=== PATIENT | female | born 1985 | race Caucasian/White ===

== ENCOUNTER 2018-10-17 11:49 | Emergency (ER) | payer OTHER ==
[2018-10-17 11:59] VITALS: BP 124/72; PULSE 68; TEMP 98.2; BMI 21.0
--- NOTE | 2018-10-17 12:47 | PDOC ---
History of Present Illness - General Chief Complaint: Puncture Wound Stated Complaint: RIGHT MID FINGER POKED WITH INTRUMENT AT WORK Time Seen by Provider: 10/17/18 11:52 History Source: Patient Exam Limitations: No Limitations - History of Present Illness Initial Comments: 10/17/18 11:52 33 yo F presenting to the ER for assessment s/p needle stick injury The patient works as a dental hygenist She was assisting with the removal of a crown. The crown was placed on the tray and she turned to pick it up She was stuck by the metal portion of the crown on her middle finger She bled and milked the finger She washed the finger with copious water the HIV status of the source patient in unknown, at this time she is deciding on whether to give a blood sample (source patient is a low risk population) PMH: denies PSH: denies Meds: denies ALL: Sulfa --> flushed feel Social: denies drug or cigarette use FH: non contributory ROS GENERAL/CONSTITUTIONAL: No: fever, chills CARDIOVASCULAR: No: chest pain, lightheadedness RESPIRATORY: No: cough, shortness of breath GASTROINTESTINAL: No: nausea, vomiting, diarrhea, abdominal pain GENITOURINARY: No: dysuria, hematuria, frequency, urgency, flank pain. MUSCULOSKELETAL: No: back pain, neck pain, joint pain, muscle swelling or pain SKIN: Yes: small puncture wound No: lesions, pallor, rash or easy bruising. NEUROLOGIC: No: headache, vertigo, paresthesias, weakness PE: GENERAL: The patient is in no acute distress. HEAD: Normal EYES: PERRLA, EOMI, sclera anicteric, conjunctiva clear. ENT: Ears normal, nares patent, oropharynx clear without exudates. Moist mucous membranes. NECK: Normal range of motion, supple LUNGS: Breath sounds equal, clear to auscultation bilaterally. No wheezes, and no crackles. HEART:Regular rate and rhythm, normal S1 and S2 without murmur, rub or gallop. ABDOMEN: Soft, nontender, normoactive bowel sounds. No guarding, no rebound. No masses palpable. EXTREMITIES: Normal range of motion, no edema. NEUROLOGICAL: Cranial nerves II through XII grossly intact. Normal speech. No focal neurological deficits. MUSCULOSKELETAL: Back non-tender to palpation, no CVA tenderness SKIN: middle finger puncture wound, no bleeding noted 10/18/18 08:24 Past History - Past Medical History Allergies/Adverse Reactions: Allergies Allergy/AdvReac Type Severity Reaction Status Date / Time Sulfa (Sulfonamide Allergy Intermediate Nausea Verified 10/17/18 11:51 Antibiotics) Home Medications: Ambulatory Orders NK [No Known Home Medication] 10/17/18 ED Treatment Course - LABORATORY CBC & Chemistry Diagram: 10/17/18 14:17 10/17/18 14:17 Medical Decision Making - Medical Decision Making 10/17/18 12:47 Pt injury low risk Would not give PPX Call placed to ID as pt is very concerned 10/17/18 13:10 Pt understands risk is very low would like to proceed with PEP Will give medications for now Pt will follow up with PMD for additional medications Source patient has been going to the dental practice for 20 years and will be contacted for testing *DC/Admit/Observation/Transfer Diagnosis at time of Disposition: Hx of exposure to hazardous bodily fluids - Discharge Dispostion Disposition: HOME Condition at time of disposition: Stable Decision to Admit order: No - Referrals Referrals: [facility] [Provider Group] ([phone]) Ambrose Acharya MD [Staff Physician] - - Patient Instructions Printed Discharge Instructions: DI for Accidental Exposure to Body Fluids Additional Instructions: Thank you for coming in to the ER today Your risk is very low based on the type of exposure you described Your baseline labs were sent We have given you medications which will last through the weekend, Your primary doctor has to prescribe any additional medications if you need to continue this Return to the ER for any other concerns or complaints - Post Discharge Activity
[2018-10-17] MEDS ORDERED: TETANUS AND DIPHTHERIA TOXOID 0.5 ML DISP.SYRIN IM ONE (13:08)
[2018-10-17] MEDS ORDERED: EMTRICITABINE 200MG/TENOFOVIR 300MG PO ONE (13:08)
[2018-10-17] MEDS ORDERED: RALTEGRAVIR POTASSIUM 400 MG TAB PO ONE (13:08)
[2018-10-17 14:22] LABS: BASO % 0.3 % (0-2.0); EOS % 3.7 % (0-4.5); HEMOGLOBIN 13.6 GM/dl (10.7-15.3); LYMPH % 40.4 % (8-40); MCH 27.4 pg (25.7-33.7); MCHC 32.3 g/dl (32.0-36.0); MEAN PLT VOLUME 7.9 fl (7.5-11.1); MONO % 8.7 % (3.8-10.2); NEUT % 46.9 % (42.8-82.8); PLATELET COUNT 312 K/MM3 (134-434); RBC 4.94 M/mm3 (3.60-5.2); RDW 13.4 % (11.6-15.6); WHITE BLOOD COUNT 7.4 K/mm3 (4.0-10.8)
[2018-10-17] MEDS ORDERED: HIV POST EXPOSURE PROPHYLAXIS KIT PO ONE (14:26)
[2018-10-17 14:46] LABS: ALBUMIN 4.4 g/dl (3.4-5.0); BILIRUBIN,TOTAL 0.6 mg/dl (0.2-1); CALCIUM 9.3 mg/dl (8.5-10); CREATININE 0.5 mg/dl (0.55-1.3); PHOSPHOROUS 3.3 mg/dl (2.5-4.9); POTASSIUM 4.5 mmol/L (3.5-5.1); TOT PROT 7.6 g/dl (6.4-8.2); URIC ACID 4.3 mg/dl (2.6-7.2)
== END 2018-10-17 14:44 | disposition home or self-care (01) ==
LOC: FER 11:49
DX: Z77.21 Contact with and (suspected) exposure to potentially hazardous body fluids (principal); W46.1XXA Contact with contaminated hypodermic needle, initial encounter; Y99.0 Civilian activity done for income or pay; Y93.9 Activity, unspecified; Y92.9 Unspecified place or not applicable
CPT/HCPCS: 36415; 80053; 82465; 82977; 83615; 84100; 84478; 84550; 84703; 85025; 86317; 86704; 86706; 86803; 87340; 87389; 99282-25